=== PATIENT | male | born 1995 | race Caucasian/White ===

== ENCOUNTER 2017-03-12 21:02 | Emergency (ER) | payer BC ==
[~2017-03-12 21:02] MED LIST: Pantoprazole 40 MG Tab.CR PO ONE
[2017-03-12 21:28] LABS: CHLORIDE,CL 103 mEq/L (98-106); SODIUM,NA 139 mEq/L (136-145)
[2017-03-12 22:04] VITALS: BP 146/84
--- NOTE | 2017-03-12 22:12 | EDM.PDOC ---
ED HPI GENERAL MEDICAL PROBLEM - General Chief Complaint: General Stated Complaint: "Having stomach pain and diarrhea with blood Time Seen by Provider: 03/12/17 21:50 Source of Information: Reports: Patient History Limitations: Reports: No limitations - History of Present Illness INITIAL COMMENTS - FREE TEXT/NARRATIVE: States that he has been having diarrhea for several days and has pain in around the umbilicus area. Had been drinking heavily both the hard alcohol and beer. Hasn't drank since abdominal pain started. Has history of ulcers in the past. Is able to eat and drink without any difficulty. States that he has noted blood in his stool but not bloody. No fever or chills. No recent antibiotics Onset: gradual Location: Reports: abdomen Quality: Reports: Ache, Burning Associated Symptoms: Denies: fever/chills, nausea/vomiting, shortness of breath Past Medical History - Past Health History Medical/Surgical History: Denies Medical/Surgical History Respiratory History: Reports: None Genitourinary History: Reports: None Psychiatric History: Reports: None Dermatologic History: Reports: None Social & Family History - Tobacco Use Smoking Status *Q: Never Smoker Second Hand Smoke Exposure: No - Alcohol Use Alcohol Use History: Yes ED ROS GENERAL - Review of Systems Review Of Systems: See Below Constitutional: Denies: fever, chills Respiratory: Denies: Shortness of Breath Cardiovascular: Denies: Chest pain GI/Abdominal: Reports: Abdominal pain, Bloody stool. Denies: Constipation, Diarrhea, Nausea, Vomiting Musculoskeletal: Denies: back pain Skin: Denies: rash ED EXAM, GENERAL - Physical Exam Exam: See Below Exam Limited By: No limitations General Appearance: alert, WD/WN, no apparent distress Ears: normal canal, normal TMs Nose: normal inspection Throat/Mouth: Normal inspection, Normal oropharynx Head: atraumatic, normocephalic Neck: normal inspection, supple, full range of motion Respiratory/Chest: no respiratory distress, lungs clear, normal breath sounds Cardiovascular: regular rate, rhythm, no edema GI/Abdominal: normal bowel sounds, soft, non tender (Male) Exam: Normal inspection Rectal (Males) Exam: Normal exam, Heme - stool Back Exam: normal inspection, full range of motion Extremities: normal inspection, normal range of motion, non-tender Neurological: alert, oriented Skin Exam: Warm, Dry, Intact Course - Vital Signs Last Recorded V/S: Last Vital Signs Temp 97.7 F 03/12/17 22:02 Pulse 104 H 03/12/17 22:02 Resp 20 03/12/17 22:02 BP 146/84 H 03/12/17 22:02 Pulse Ox 99 03/12/17 22:02 - Orders/Labs/Meds Labs: Laboratory Tests 03/12/17 03/12/17 Range/Units 21:12 21:15 WBC 6.3 (5.0-10.0) 10^3/uL RBC 4.85 (4.50-6.00) 10^6/uL Hgb 14.9 (14.0-18.0) g/dL Hct 41.8 (40.0-54.0) % MCV 86.2 (82.0-94.0) fL MCH 30.7 (27.0-32.0) pg MCHC 35.6 (33.0-38.0) g/dL RDW Coeff of Dora 12.4 (11.0-15.0) % Plt Count 183 (150-400) 10^3/uL Neut % (Auto) 55.0 (35-85) % Lymph % (Auto) 25.0 (10-55) % Taney % (Auto) 16.7 H (0-16) % Eos % (Auto) 2.5 (0-5) % Baso % (Auto) 0.8 (0-3) % Neut # (Auto) 3.46 (1.80-7.00) 10^3/uL Lymph # (Auto) 1.57 (1.00-4.80) 10^3/uL Taney # (Auto) 1.05 H (0.00-0.80) 10^3/uL Eos # (Auto) 0.16 (0.00-0.45) 10^3/uL Baso # (Auto) 0.05 10^3/uL Sodium 139 (136-145) mEq/L Potassium 3.5 (3.5-5.0) mEq/L Chloride 103 (98-106) mEq/L Carbon Dioxide 28 (21-32) mmol/L BUN 13 (7-18) mg/dL Creatinine 1.0 (0.7-1.3) mg/dL Est Cr Clr Drug Dosing TNP Estimated GFR (MDRD) > 60 (>=60) mL/min Glucose 90 (75-99) mg/dL Calcium 9.1 (8.4-10.1) mg/dL Meds: Medications Discontinued Medications Generic Name Dose Route Start Last Admin Trade Name Chantel PRN Reason Stop Dose Admin Pantoprazole Sodium 1 packet 03/12/17 22:15 Take Home: Pantoprazole 40 Mg, 1 Tab Pack PO 03/12/17 22:16 ONETIME ONE Departure - Departure Time of Disposition: 22:16 Disposition: Home, Self-Care 01 Condition: good Clinical Impression: Diarrhea Qualifiers: Diarrhea type: unspecified type Qualified Code(s): R19.7 - Diarrhea, unspecified Forms: ED Department Discharge Additional Instructions: start carafate before meals and at bedtime for the next 6 weeks Pantoprazole 40 mg daily for next 6 weeks avoid alcohol, caffeine, tobacco, spicy foods etc Recheck if pain is not resolved. - Problem List & Annotations (1) Diarrhea SNOMED Code(s): 67011266 Code(s): R19.7 - DIARRHEA, UNSPECIFIED Status: Acute Priority: High Qualifiers: Diarrhea type: unspecified type Qualified Code(s): R19.7 - Diarrhea, unspecified - Problem List Review Problem List Initiated/Reviewed/Updated: Yes
[2017-03-12] MEDS ORDERED: Take Home: Pantoprazole 40 MG Tab.CR, 1 Tab Pack PO ONE (22:15)
== END 2017-03-12 22:25 | disposition home or self-care (01) ==
LOC: CC.ED 21:02
DX: R19.7 Diarrhea, unspecified (principal)
CPT/HCPCS: 36415; 80048; 85025; 99284; A9270